=== PATIENT | male | born 1960 | race Caucasian/White ===

== ENCOUNTER 2022-05-28 14:35 | Emergency (ER) | payer MEDICAID ==
[~2022-05-28] VITALS: Ht 167.6 cm; Wt 95.3 kg
[2022-05-28 14:44] VITALS: BP 149/86
[2022-05-28] MEDS ORDERED: ACETAMINOPHEN EXTRA STRENGTH 500 MG TAB PO ONE (14:55)
--- NOTE | 2022-05-28 15:17 | NUR ---
SWABS HANDED TO KULWINDER SURGICAL ASSISTANT CERTIFIED
--- NOTE | 2022-05-28 16:20 | NUR ---
PT STATED THAT HE FELT "DIZZY" ACCUCHECK DONE AND GIVEN SANDWICH AND JUICE
--- NOTE | 2022-05-28 16:20 | NUR ---
61 Y/O MALE NANNETTE FROM [facility] C/O GEN BODY ACHES, FEVERS, HEADACHE, COUGH. PER EMS PT WAS TESTED FOR COVID AT FACILITY AND TESTED NEGATIVE. NKA PMH: HTN, DM,GOUT, DEPRESSION Addendum: 05/28/22 at 1623 by MNURBMD ALLERGY: FLUOXETINE
[2022-05-28] MEDS ORDERED: BENZ-300 PO (16:40)
[2022-05-28] MEDS ORDERED: IBUP-2213 PO (16:40)
[2022-05-28] MEDS ORDERED: TAM75 PO (16:40)
--- NOTE | 2022-05-28 16:49 | NUR ---
Patient discharged with v/s stable. Written and verbal after care instructions ABOUT INFLUENZA given and explained. Patient alert, oriented and verbalized understanding of instructions. Ambulatory with to [facility]. All questions addressed prior to discharge. ID band removed. Patient advised to follow up with PMD. Rx of CEPACOL, MOTRIN AND TAMIFLU given. Patient educated on indication of medication including possible reaction and side effects. Opportunity to ask questions provided and answered.
== END 2022-05-28 16:49 | disposition home or self-care (01) ==
LOC: MED 14:35
DX: J10.1 Influenza due to other identified influenza virus with other respiratory manifestations (principal); Z20.822 Contact with and (suspected) exposure to COVID-19; R11.0 Nausea; E11.9 Type 2 diabetes mellitus without complications; I10 Essential (primary) hypertension; Z88.1 Allergy status to other antibiotic agents; Z79.899 Other long term (current) drug therapy
CPT/HCPCS: 71045; 87426; 87804; 99284; Q0092

== ENCOUNTER 2022-07-03 17:40 | Emergency (ER) | payer MEDICAID ==
[~2022-07-03] VITALS: Ht 167.6 cm; Wt 81.6 kg
[~2022-07-03 17:40] MED LIST: BENZ-300 PO; IBUP-2213 PO; TAM75 PO
[2022-07-03 17:57] VITALS: BP 158/96
--- NOTE | 2022-07-03 18:00 | NUR ---
PT RECEIVED, CARE ASSUMED. PT PRESENTS SELF TO ER FOR EVALUATION OF BLOOD IN URINE. COLLECTED URINE. AWAITING TO BE SEEN BY
[2022-07-03 18:39] LABS: BASOPHILS # (AUTO) 0.1 K/uL (0.00-0.22); BASOPHILS % (AUTO) 0.8 % (0.0-2.0); EOSINOPHILS # (AUTO) 0.5 K/uL (0-0.4); EOSINOPHILS % (AUTO) 5.6 % (0.0-4.0); HEMATOCRIT 42.6 % (36-52); HEMOGLOBIN 14.5 g/dL (12.0-18.0); LYMPHOCYTES # (AUTO) 3.1 K/uL (2.0-11.5); LYMPHOCYTES % (AUTO) 34.2 % (20.5-51.1); MEAN CORPUSCULAR HEMOGLOBIN 29 pg (27-31); MEAN CORPUSCULAR HGB CONC 34 g/dL (33-37); MEAN CORPUSCULAR VOLUME 84.4 fL (80-94); MONOCYTES # (AUTO) 0.8 K/uL (0.8-1.0); MONOCYTES % (AUTO) 8.3 % (1.7-9.3); NEUTROPHILS # (AUTO) 4.6 K/uL (1.8-7.7); NEUTROPHILS % (AUTO) 51.1 % (42.2-75.2); PLATELET COUNT (AUTO) 237 K/uL (140-450); RED BLOOD CELL COUNT(AUTO) 5.05 MIL/uL (4.20-6.10); RED CELL DISTRIBUTION WIDTH 13.8 % (11.6-13.7); WHITE BLOOD COUNT (AUTO) 9.1 K/uL (4.8-10.8)
[2022-07-03 19:01] LABS: ALBUMIN 3.8 g/dL (3.4-5.0); ANION GAP 8.9 (8-16); CREATININE 1.1 mg/dL (0.6-1.3); POTASSIUM 3.9 mmol/L (3.5-5.1); TOTAL BILIRUBIN 0.2 mg/dL (0.0-1.0)
[2022-07-03 19:07] LABS: APPEARANCE,URINE SL CLOUDY (CLEAR); BILIRUBIN,URINE NEGATIVE (NEGATIVE); BLOOD, URINE 3+ (NEGATIVE); COLOR,URINE AMBER (YELLOW); LEUKOCYTE ESTERASE ,URINE NEGATIVE (NEGATIVE); NITRITE, URINE NEGATIVE (NEGATIVE); UGLUCOSE 3+ (NEGATIVE)
[2022-07-03 19:32] LABS: RBC,URINE 20-50 /HPF (0-5); WBC,URINE 0-5 /HPF (0-5)
[2022-07-03 19:33] LABS: OTHER CASTS, URINE None Seen /LPF (None Seen)
[2022-07-03] MEDS ORDERED: TAMS0.4C96 PO (19:48)
[2022-07-03] MEDS ORDERED: SULF-59 PO (19:48)
--- NOTE | 2022-07-03 20:26 | NUR ---
Patient discharged with v/s stable. Written and verbal after care instructions given and explained. Patient verbalized understanding. Ambulatory with steady gait. All questions addressed prior to discharge. Advised to follow up with PMD.
== END 2022-07-03 18:00 | disposition home or self-care (01) ==
LOC: MED 17:40
DX: N30.91 Cystitis, unspecified with hematuria (principal); E11.9 Type 2 diabetes mellitus without complications; I10 Essential (primary) hypertension; Z79.4 Long term (current) use of insulin; Z79.899 Other long term (current) drug therapy
CPT/HCPCS: 36415; 80053; 81001; 85025; 87086; 99283

== ENCOUNTER 2022-08-12 01:06 | Inpatient (IN) | payer MEDICAID ==
[~2022-08-12] VITALS: Ht 167.6 cm; Wt 106.6 kg
[~2022-08-12 01:06] MED LIST changes: +SULF-59 PO; +TAMS0.4C96 PO
[2022-08-12 01:08] VITALS: BP 162/94
--- NOTE | 2022-08-12 01:13 | NUR ---
pt to bed
--- NOTE | 2022-08-12 01:27 | NUR ---
abd pain 10/10 started a couple of hours ago. pt has nausea. pt denies eating anything, he also said having some nausea headache and arm ad neck pain. pt has history of gout
[2022-08-12 01:56] LABS: BASOPHILS % (AUTO) 0.4 % (0.0-2.0); EOSINOPHILS # (AUTO) 0.4 K/uL (0-0.4); EOSINOPHILS % (AUTO) 3.7 % (0.0-4.0); HEMATOCRIT 43.4 % (36-52); HEMOGLOBIN 15.3 g/dL (12.0-18.0); LYMPHOCYTES # (AUTO) 1.4 K/uL (2.0-11.5); LYMPHOCYTES % (AUTO) 11.8 % (20.5-51.1); MEAN CORPUSCULAR HEMOGLOBIN 29 pg (27-31); MEAN CORPUSCULAR HGB CONC 35 g/dL (33-37); MEAN CORPUSCULAR VOLUME 82.5 fL (80-94); MONOCYTES # (AUTO) 0.6 K/uL (0.8-1.0); MONOCYTES % (AUTO) 5.2 % (1.7-9.3); NEUTROPHILS # (AUTO) 9.5 K/uL (1.8-7.7); NEUTROPHILS % (AUTO) 78.9 % (42.2-75.2); PLATELET COUNT (AUTO) 322 K/uL (140-450); RED BLOOD CELL COUNT(AUTO) 5.26 MIL/uL (4.20-6.10); RED CELL DISTRIBUTION WIDTH 14.7 % (11.6-13.7)
[2022-08-12] MEDS ORDERED: NACL 0.9% 2,000 ML IV ONE (02:30)
[2022-08-12 03:23] LABS: ALBUMIN 3.8 g/dL (3.4-5.0); ANION GAP 13.1 (8-16); CARBON DIOXIDE 27.6 mmol/L (21-32); CREATININE 1.1 mg/dL (0.6-1.3); POTASSIUM 3.7 mmol/L (3.5-5.1); TOTAL BILIRUBIN 0.4 mg/dL (0.0-1.0)
[2022-08-12] MEDS ORDERED: MORPHINE SULFATE 4 MG/ML SYR IVP ONE (04:00)
[2022-08-12] MEDS ORDERED: ONDANSETRON 4 MG/2 ML VIAL IVP PRN (06:25)
[2022-08-12] MEDS ORDERED: POTASSIUM CHLORIDE 10 MEQ TABER PO PRN (06:25)
[2022-08-12] MEDS ORDERED: MORPHINE SULFATE 2 MG/ML SYR IVP PRN (06:25)
[2022-08-12] MEDS ORDERED: NACL 0.9% 1,000 ML IV ONE (06:25)
[2022-08-12] MEDS ORDERED: MAG SULF 2000 MG/WATER PREMIX 50 ML IV PRN (06:25)
[2022-08-12] MEDS ORDERED: LORazepam 2 MG/ML VIAL IVP PRN (06:25)
[2022-08-12] MEDS ORDERED: DOCUSATE SODIUM 100 MG GELCAP PO PRN (06:25)
[2022-08-12] MEDS ORDERED: ACETAMINOPHEN 325 MG TAB PO PRN (06:25)
[2022-08-12] MEDS ORDERED: ZOLPIDEM 10 MG TAB PO PRN (06:25)
[2022-08-12] MEDS ORDERED: DEXTROSE 50% 50 ML SYR IVP PRN (06:30)
[2022-08-12] MEDS ORDERED: AMLO5TAB PO (06:49)
[2022-08-12] MEDS ORDERED: INSU100S22 SUBQ (06:49)
[2022-08-12] MEDS ORDERED: DULO20EC PO (06:49)
[2022-08-12] MEDS ORDERED: [UNRECOGNIZED DRUG - CODE] PO (06:49)
[2022-08-12] MEDS ORDERED: INSU100S5 IJ (06:49)
[2022-08-12] MEDS ORDERED: MELA5SGL PO (06:49)
[2022-08-12] MEDS ORDERED: ALLO100T21 PO (06:49)
[2022-08-12] MEDS ORDERED: PANT40EC PO (06:49)
[2022-08-12] MEDS ORDERED: PRAZ1CAP5 PO (06:49)
[2022-08-12] MEDS ORDERED: TRAZ150T36 PO (06:49)
--- NOTE | 2022-08-12 07:45 | NUR ---
ASSUMED PATIENT CARE, CONCU WITH PRIOR NURSING ASSESSMENTS.
[2022-08-12] MEDS: LEVOFLOXACIN 500 MG/D5W PREMIX 100 ML IV SCH (09:05)
[2022-08-12] MEDS: metroNIDAZOLE 500 MG/NS PREMIX 100 ML IV SCH ×2 (09:47→22:15)
[2022-08-12] MEDS: BLOOD GLUCOSE MONITORING 1 DEV DEV FS SCH ×4 (11:27→22:00)
--- NOTE | 2022-08-12 14:08 | NUR ---
PATIENT HAS BEEN SCREENED AND CATEGORIZED MODERATE NUTRITION RISK. PATIENT WILL BE SEEN WITHIN 3-5 DAYS OF ADMISSION. REVIEWED BY BRUNO CASIANO RD
--- NOTE | 2022-08-12 19:20 | NUR ---
Received report from CAROLYN Bob and continue care of patient.
--- NOTE | 2022-08-12 19:58 | NUR ---
Patient will be admitted to care of Dr. Bonner. Admited to [facility]. Will go to room 113. Belongings list completed. Report to CAROLYN Armijo.
[2022-08-12 20:25] VITALS: BP 119/65
--- NOTE | 2022-08-12 20:25 | NUR ---
RECEIVED PATIENT FROM ED, CAME VIA WHEELCHAIR, PATIENT IS AWAKE, ALERT AND ORIENTED TO PERSON AND TIME, NO SIGNS OF DISTRESS NOTED. PATIENT ABLE TO TRANSFER FROM WHEELCHAIR TO BED, WITH STANDBY ASSIST, USES CANE AMBULATORY DEVICE. MRSA SWAB DONE. INITIAL ASSESSMENT DONE. CALL LIGHT WITHIN REACH.
--- NOTE | 2022-08-12 22:15 | NUR ---
SCHEDULED MEDICATIONS GIVEN ORDERED.
--- NOTE | 2022-08-13 00:30 | NUR ---
PATIENT IS ASLEEP, NO SIGNS OF DISTRESS NOTED, NO SIGNS OF PAIN/DISCOMFORT NOTED. CALL LIGHT WITHIN REACH.
[2022-08-13 04:00] VITALS: BP 114/72
[2022-08-13] MEDS: metroNIDAZOLE 500 MG/NS PREMIX 100 ML IV SCH ×3 (04:42→20:41)
--- NOTE | 2022-08-13 04:42 | NUR ---
SCHEDULED MEDICATION GIVEN ORDERED. PATIENT DENIES PAIN, DENIES SOB. CALL LIGHT WITHIN REACH.
[2022-08-13] MEDS: BLOOD GLUCOSE MONITORING 1 DEV DEV FS SCH ×4 (06:39→20:37)
--- NOTE | 2022-08-13 07:19 | NUR ---
ENDORSED PATIENT TO DAY NURSE FOR CONTINUITY OF CARE. NEEDS MET THROUGHOUT THE SHIFT. PATIENT IN STABLE CONDITION.
--- NOTE | 2022-08-13 07:25 | NUR ---
RECEIVED PATIENT FROM RADIO EQUIPMENT REPAIRER NURSE.PATIENT SLEEPING IN BED.CHEST RISING AND FALLING EVENLY.ALL SAFETY MEASURES IN PLACE.ON 2L NC.CALL LIGHT WITHIN REACH.WILL CONTINUE TO MONITOR.POC DISCUSSED WITH RADIO EQUIPMENT REPAIRER NURSE.
[2022-08-13 07:31] LABS: BASOPHILS % (AUTO) 0.4 % (0.0-2.0); EOSINOPHILS # (AUTO) 0.3 K/uL (0-0.4); EOSINOPHILS % (AUTO) 5.3 % (0.0-4.0); HEMATOCRIT 41.4 % (36-52); HEMOGLOBIN 13.8 g/dL (12.0-18.0); LYMPHOCYTES # (AUTO) 1.8 K/uL (2.0-11.5); LYMPHOCYTES % (AUTO) 30.4 % (20.5-51.1); MEAN CORPUSCULAR HEMOGLOBIN 29 pg (27-31); MEAN CORPUSCULAR HGB CONC 33 g/dL (33-37); MEAN CORPUSCULAR VOLUME 85.9 fL (80-94); MONOCYTES # (AUTO) 0.6 K/uL (0.8-1.0); MONOCYTES % (AUTO) 9.9 % (1.7-9.3); NEUTROPHILS # (AUTO) 3.2 K/uL (1.8-7.7); PLATELET COUNT (AUTO) 179 K/uL (140-450); RED BLOOD CELL COUNT(AUTO) 4.82 MIL/uL (4.20-6.10); RED CELL DISTRIBUTION WIDTH 13.6 % (11.6-13.7); WHITE BLOOD COUNT (AUTO) 5.9 K/uL (4.8-10.8)
[2022-08-13 07:35] LABS: ANION GAP 10.9 (8-16); CARBON DIOXIDE 28.7 mmol/L (21-32); CREATININE 0.8 mg/dL (0.6-1.3); POTASSIUM 3.6 mmol/L (3.5-5.1)
[2022-08-13 08:00] VITALS: BP 137/79
[2022-08-13] MEDS: LEVOFLOXACIN 500 MG/D5W PREMIX 100 ML IV SCH (09:28)
[2022-08-13] MEDS: NACL 0.9% 1,000 ML IV SCH ×2 (09:33→22:28)
--- NOTE | 2022-08-13 10:00 | NUR ---
FREQUENT ROUNDS DONE.PATIENT SLEEPING IN BED. MORNING CARE GIVEN, ALL DUE MEDICATIONS GIVEN .ON NS 75 ML/HR. ALL SAFETY MEASURES IN PLACE.ALL NEEDS MET UNTIL NOW.
--- NOTE | 2022-08-13 15:30 | NUR ---
PERIPHERAL IV COMES OUT. NEW IV LINE 22G G IN SITU. COLLECTED STOOL SAMPLE FOR STOOL CULTURE AND WBC. NO OBVIOUS SIGNS OF DIARRHEA NOTED.
[2022-08-13] MEDS: INSULIN LISPRO SLIDING SCALE 100 UNITS/ML VIAL SUBQ PRN ×2 (16:59→20:39)
--- NOTE | 2022-08-13 19:30 | NUR ---
ENDORSED PATIENT TO STONE POLISHER HAND NURSE FOR CONTINUITY OF CARE.
--- NOTE | 2022-08-13 19:35 | NUR ---
RECEIVED PATIENT ON THE BED, IS AWAKE, ALERT AND ORIENTED X3, PATIENT WAS EATING, NO SIGNS OF DISTRESS NOTED, DENIES PAIN UPON ASSESSMENT. NS @75ML/HR RUNNING VIA RIGHT HAND IV SITE, G22. CALL LIGHT WITHIN REACH.
[2022-08-13 20:00] VITALS: BP 144/85
--- NOTE | 2022-08-13 20:42 | NUR ---
SCHEDULED MEDICATIONS GIVEN ORDERED. CALL LIGHT WITHIN REACH.
[2022-08-14] MEDS: NACL 0.9% 1,000 ML IV SCH (02:42)
[2022-08-14 04:00] VITALS: BP 136/69
[2022-08-14] MEDS: metroNIDAZOLE 500 MG/NS PREMIX 100 ML IV SCH (05:07)
--- NOTE | 2022-08-14 05:07 | NUR ---
SCHEDULED FLAGYL GIVEN ORDERED. PATIENT ASLEEP, NO SIGNS OF DISTRESS NOTED, NO SIGNS OF PAIN/DISCOMFORT NOTED. CALL LIGHT WITHIN REACH. BED IN LOW AND LOCKED POSITION.
--- NOTE | 2022-08-14 06:30 | NUR ---
BLOOD SUGAR 134 MG/DL, NO INSULIN COVERAGE NEEDED.
[2022-08-14] MEDS: BLOOD GLUCOSE MONITORING 1 DEV DEV FS SCH ×3 (06:36→12:07)
--- NOTE | 2022-08-14 07:07 | NUR ---
ENDORSED PATIENT TO DAY NURSE FOR CONTINUITY OF CARE. PATIENT IN STABLE CONDITION.
[2022-08-14 07:22] LABS: ANION GAP 14.2 (8-16); CARBON DIOXIDE 24.4 mmol/L (21-32); CREATININE 0.9 mg/dL (0.6-1.3); POTASSIUM 3.6 mmol/L (3.5-5.1)
[2022-08-14 07:30] LABS: BASOPHILS % (AUTO) 0.6 % (0.0-2.0); EOSINOPHILS # (AUTO) 0.5 K/uL (0-0.4); EOSINOPHILS % (AUTO) 6.8 % (0.0-4.0); HEMATOCRIT 38.2 % (36-52); HEMOGLOBIN 13.2 g/dL (12.0-18.0); LYMPHOCYTES # (AUTO) 2.3 K/uL (2.0-11.5); LYMPHOCYTES % (AUTO) 33.4 % (20.5-51.1); MEAN CORPUSCULAR HEMOGLOBIN 28 pg (27-31); MEAN CORPUSCULAR HGB CONC 35 g/dL (33-37); MEAN CORPUSCULAR VOLUME 82.1 fL (80-94); MONOCYTES # (AUTO) 0.7 K/uL (0.8-1.0); MONOCYTES % (AUTO) 10.2 % (1.7-9.3); NEUTROPHILS # (AUTO) 3.3 K/uL (1.8-7.7); PLATELET COUNT (AUTO) 197 K/uL (140-450); RED BLOOD CELL COUNT(AUTO) 4.66 MIL/uL (4.20-6.10); RED CELL DISTRIBUTION WIDTH 13.2 % (11.6-13.7); WHITE BLOOD COUNT (AUTO) 6.8 K/uL (4.8-10.8)
--- NOTE | 2022-08-14 07:33 | NUR ---
RECEIVED PATIENT FROM HYDRATION PLANT OPERATOR NURSE. PATIENT SLEEPING IN BED. CHEST RISING AND FALLING EVENLY. NO SIGNS OF DISTRESS NOTED. CALL LIGHT WITHIN REACH.ALL SAFETY MEASURES IN PLACE.WILL CONTINUE TO MONITOR.
[2022-08-14] MEDS ORDERED: LEVO-481 PO (09:28)
[2022-08-14] MEDS: LEVOFLOXACIN 500 MG/D5W PREMIX 100 ML IV SCH (09:50)
--- NOTE | 2022-08-14 10:00 | NUR ---
FREQUENT ROUNDS DONE, MD AT BEDSIDE. DISCHARGE ORDER CONFIRMED
[2022-08-14 10:25] VITALS: BP 126/84
[2022-08-14 10:41] VITALS: BP 126/84
[2022-08-14 10:51] VITALS: BP 126/84
[2022-08-14] MEDS: INSULIN LISPRO SLIDING SCALE 100 UNITS/ML VIAL SUBQ PRN (12:09)
--- NOTE | 2022-08-14 12:30 | NUR ---
DISCHARGE PAPER WORK DONE. GAVE REPORT TO [facility] REGARDING THE PATIENT.PERIPHERAL IV REMOVED. DISCHARGE PACKETS GIVEN. ID BANDS REMOVED. DISCHARGED TO [facility].
== END 2022-08-14 12:25 | DRG 720 ==
LOC: MED 01:06 → MMU 06:23 → MTU 19:05
PROVIDERS: ADMIT Family Medicine; ATTEND Family Medicine
DX: A41.9 Sepsis, unspecified organism (principal); J96.00 Acute respiratory failure, unspecified whether with hypoxia or hypercapnia; E87.20 Acidosis, unspecified; D72.10 Eosinophilia, unspecified; E83.51 Hypocalcemia; F03.90 Unspecified dementia, unspecified severity, without behavioral disturbance, psychotic disturbance, mood disturbance, and anxiety; D72.810 Lymphocytopenia; E11.65 Type 2 diabetes mellitus with hyperglycemia; A04.9 Bacterial intestinal infection, unspecified; D72.818 Other decreased white blood cell count; K40.90 Unilateral inguinal hernia, without obstruction or gangrene, not specified as recurrent; M10.9 Gout, unspecified; Z20.822 Contact with and (suspected) exposure to COVID-19; K57.30 Diverticulosis of large intestine without perforation or abscess without bleeding; I10 Essential (primary) hypertension; Z88.8 Allergy status to other drugs, medicaments and biological substances; Z79.4 Long term (current) use of insulin; Z79.899 Other long term (current) drug therapy
CPT/HCPCS: 36415; 80048; 80053; 82948; 83605; 83690; 83735; 85025; 87040; 87081; 96360; 96361; 99285; J1956; J2270; J2405; J3490

== ENCOUNTER 2022-09-30 19:38 | Emergency (ER) | payer MEDICAID ==
[~2022-09-30] VITALS: Ht 167.6 cm; Wt 102.1 kg
[~2022-09-30 19:38] MED LIST changes: +ALLO100T21 PO; +AMLO5TAB PO; +DULO20EC PO; -IBUP-2213 PO; +INSU100S22 SUBQ; +INSU100S5 IJ; +LEVO-481 PO; +MELA5SGL PO; +PANT40EC PO; +PRAZ1CAP5 PO; -SULF-59 PO; -TAM75 PO; +TRAZ150T36 PO; +[UNRECOGNIZED DRUG - CODE] PO
[2022-09-30 20:00] VITALS: BP 164/104
--- NOTE | 2022-09-30 20:06 | NUR ---
TO BED 12 FOLLOWING TRIAGE
--- NOTE | 2022-09-30 20:10 | NUR ---
Patient resting in bed, A/Ox4, chest rise and fall symmetrical, no c/o pain or s/s of distress, on monitor.
[2022-09-30] MEDS ORDERED: ACET-9882 PO (20:41)
[2022-09-30] MEDS ORDERED: DULO20EC PO (20:41)
[2022-09-30] MEDS ORDERED: KETO30SO21 IJ (20:41)
[2022-09-30] MEDS ORDERED: CHOL500040 PO (20:41)
[2022-09-30 21:15] LABS: BASOPHILS # (AUTO) 0.1 K/uL (0.00-0.22); BASOPHILS % (AUTO) 0.7 % (0.0-2.0); EOSINOPHILS # (AUTO) 0.3 K/uL (0-0.4); EOSINOPHILS % (AUTO) 2.6 % (0.0-4.0); HEMATOCRIT 46.9 % (36-52); LYMPHOCYTES # (AUTO) 2.5 K/uL (2.0-11.5); LYMPHOCYTES % (AUTO) 20.4 % (20.5-51.1); MEAN CORPUSCULAR HEMOGLOBIN 28 pg (27-31); MEAN CORPUSCULAR HGB CONC 34 g/dL (33-37); MEAN CORPUSCULAR VOLUME 83.1 fL (80-94); MONOCYTES # (AUTO) 0.8 K/uL (0.8-1.0); NEUTROPHILS # (AUTO) 8.4 K/uL (1.8-7.7); NEUTROPHILS % (AUTO) 69.3 % (42.2-75.2); PLATELET COUNT (AUTO) 245 K/uL (140-450); RED BLOOD CELL COUNT(AUTO) 5.64 MIL/uL (4.20-6.10); RED CELL DISTRIBUTION WIDTH 13.8 % (11.6-13.7); WHITE BLOOD COUNT (AUTO) 12.1 K/uL (4.8-10.8)
[2022-09-30 21:25] LABS: ANION GAP 12.3 (8-16); CARBON DIOXIDE 27.7 mmol/L (21-32); CREATININE 1.1 mg/dL (0.6-1.3)
[2022-09-30] MEDS ORDERED: NACL 0.9% 1,000 ML IV ONE (21:50)
--- NOTE | 2022-09-30 22:31 | NUR ---
Dr. Serrano verbally informed that patient stated he "has congested heart failure." Dr. Serrano verbalized understanding and stated "a liter of IV fluid is ok."
--- NOTE | 2022-09-30 22:42 | NUR ---
Patient resting in bed, A/Ox4, chest rise and fall symmetrical, no c/o pain or s/s of distress, on monitor.
[2022-09-30 23:26] LABS: APPEARANCE,URINE CLEAR (CLEAR); BILIRUBIN,URINE 1+ (NEGATIVE); BLOOD, URINE 3+ (NEGATIVE); COLOR,URINE YELLOW (YELLOW); LEUKOCYTE ESTERASE ,URINE NEGATIVE (NEGATIVE); NITRITE, URINE NEGATIVE (NEGATIVE); UGLUCOSE 3+ (NEGATIVE)
[2022-09-30 23:29] LABS: RBC,URINE TOO NUMEROUS TO COUN /HPF (0-5); WBC,URINE 0-5 /HPF (0-5)
--- NOTE | 2022-10-01 00:22 | NUR ---
Patient resting in bed, A/Ox4, chest rise and fall symmetrical, no c/o pain or s/s of distress, on monitor.
--- NOTE | 2022-10-01 02:00 | NUR ---
Patient resting in bed, A/Ox4, chest rise and fall symmetrical, no c/o pain or s/s of distress, on monitor.
[2022-10-01 02:05] VITALS: BP 135/74
--- NOTE | 2022-10-01 02:08 | NUR ---
Yari cary in EDM - 10/01/22 at 0209 by [id number] Patient discharged with v/s stable. Written and verbal after care instructions given and explained. Patient verbalized understanding. All questions addressed prior to discharge. Advised to follow up with PMD.
--- NOTE | 2022-10-01 02:09 | NUR ---
Patient discharged with v/s stable. Written and verbal after care instructions given and explained. Patient verbalized understanding. Ambulatory with to home. All questions addressed prior to discharge. Advised to follow up with PMD.
== END 2022-10-01 02:09 | disposition home or self-care (01) ==
LOC: MED 19:38
DX: R31.9 Hematuria, unspecified (principal); E11.9 Type 2 diabetes mellitus without complications; I10 Essential (primary) hypertension; F03.90 Unspecified dementia, unspecified severity, without behavioral disturbance, psychotic disturbance, mood disturbance, and anxiety; Z79.899 Other long term (current) drug therapy; Z79.4 Long term (current) use of insulin; Z88.8 Allergy status to other drugs, medicaments and biological substances
CPT/HCPCS: 36415; 80048; 81001; 85025; 96360; 99285; J7030

== ENCOUNTER 2023-03-26 11:15 | Emergency (ER) | payer OTHER, MEDICAID ==
[~2023-03-26] VITALS: Ht 167.6 cm; Wt 90.7 kg
[~2023-03-26 11:15] MED LIST changes: +ACET-9882 PO; -BENZ-300 PO; +CHOL500040 PO; +KETO30SO21 IJ; -LEVO-481 PO; -[UNRECOGNIZED DRUG - CODE] PO
[2023-03-26] MEDS ORDERED: KETOROLAC 30 MG/ML VIAL IM ONE ×3 (11:25→11:30)
[2023-03-26] MEDS ORDERED: KETOROLAC 15 MG/ML VIAL ONE ×2 (11:31→11:32)
[2023-03-26 11:35] VITALS: BP 160/85; PULSE 80; RESP 18; TEMP 98; O2SAT 98
[2023-03-26] MEDS ORDERED: KETOROLAC 60 MG/2 ML VIAL IM ONE ×2 (11:38→11:40)
[2023-03-26 11:43] LABS: BASOPHILS # (AUTO) 0.1 K/uL (0.00-0.22); BASOPHILS % (AUTO) 0.6 % (0.0-2.0); EOSINOPHILS # (AUTO) 0.5 K/uL (0-0.4); EOSINOPHILS % (AUTO) 4.6 % (0.0-4.0); HEMATOCRIT 38.4 % (36-52); HEMOGLOBIN 12.8 g/dL (12.0-18.0); LYMPHOCYTES # (AUTO) 2.6 K/uL (2.0-11.5); LYMPHOCYTES % (AUTO) 25.6 % (20.5-51.1); MEAN CORPUSCULAR HEMOGLOBIN 28 pg (27-31); MEAN CORPUSCULAR HGB CONC 34 g/dL (33-37); MEAN CORPUSCULAR VOLUME 83.3 fL (80-94); MONOCYTES # (AUTO) 0.9 K/uL (0.8-1.0); MONOCYTES % (AUTO) 8.4 % (1.7-9.3); NEUTROPHILS # (AUTO) 6.2 K/uL (1.8-7.7); NEUTROPHILS % (AUTO) 60.8 % (42.2-75.2); PLATELET COUNT (AUTO) 207 K/uL (140-450); RED BLOOD CELL COUNT(AUTO) 4.61 MIL/uL (4.20-6.10); RED CELL DISTRIBUTION WIDTH 13.5 % (11.6-13.7); WHITE BLOOD COUNT (AUTO) 10.2 K/uL (4.8-10.8)
[2023-03-26 11:59] LABS: ALBUMIN 3.1 g/dL (3.4-5.0); ANION GAP 9.4 (8-16); CALCIUM 8.7 mg/dL (8.5-10.1); CARBON DIOXIDE 28.7 mmol/L (21-32); POTASSIUM 4.1 mmol/L (3.5-5.1); TOTAL BILIRUBIN 0.2 mg/dL (0.0-1.0); TOTAL PROTEIN, SERUM 7.1 g/dL (6.4-8.2)
[2023-03-26 16:38] VITALS: BP 118/79; PULSE 83; RESP 15; TEMP 97.1; O2SAT 100
== END 2023-03-26 16:39 | disposition home or self-care (01) ==
LOC: MED 11:15
DX: R07.89 Other chest pain (principal); K40.90 Unilateral inguinal hernia, without obstruction or gangrene, not specified as recurrent; E11.9 Type 2 diabetes mellitus without complications; I10 Essential (primary) hypertension; F03.90 Unspecified dementia, unspecified severity, without behavioral disturbance, psychotic disturbance, mood disturbance, and anxiety; Z79.899 Other long term (current) drug therapy; Z79.4 Long term (current) use of insulin; Z88.8 Allergy status to other drugs, medicaments and biological substances
CPT/HCPCS: 36415; 71045; 74176; 80053; 83880; 84484; 85025; 93005; 96372; 99285; J1885

== ENCOUNTER 2023-04-07 19:08 | Emergency (ER) | payer OTHER, MEDICAID ==
[~2023-04-07] VITALS: Ht 167.6 cm; Wt 113.4 kg
[2023-04-07 19:17] VITALS: BP 172/98; PULSE 98; RESP 18; TEMP 97.9; O2SAT 98
[2023-04-07 20:12] VITALS: BP 148/79; PULSE 98; RESP 18; TEMP 97.9; O2SAT 98
[2023-04-07 20:31] LABS: BILIRUBIN,URINE 1+ (NEGATIVE); BLOOD, URINE 3+ (NEGATIVE); LEUKOCYTE ESTERASE ,URINE TRACE (NEGATIVE); NITRITE, URINE POSITIVE (NEGATIVE); PH,URINE 5.5 (5.0-9.0); PROTEIN,URINE 2+ (NEGATIVE); UGLUCOSE 3+ (NEGATIVE)
[2023-04-07 20:46] LABS: BACTERIA,URINE 10-30 (MOD) /HPF (None Seen); ICTOTEST NEGATIVE (NEGATIVE); RBC,URINE 11-20 (MOD) /HPF (0-5); SQUAMOUS EPITHELIAL CELL,UR 0-3 (FEW) /LPF (0-3 (FEW))
[2023-04-07 20:47] LABS: APPEARANCE,URINE BLOODY (CLEAR); COLOR,URINE RED (YELLOW)
== END 2023-04-07 20:28 | disposition left against medical advice (07) ==
LOC: MED 19:08
DX: R31.9 Hematuria, unspecified (principal); K40.90 Unilateral inguinal hernia, without obstruction or gangrene, not specified as recurrent; I11.0 Hypertensive heart disease with heart failure; I50.9 Heart failure, unspecified; E11.9 Type 2 diabetes mellitus without complications; F03.90 Unspecified dementia, unspecified severity, without behavioral disturbance, psychotic disturbance, mood disturbance, and anxiety; Z79.899 Other long term (current) drug therapy; Z79.2 Long term (current) use of antibiotics; Z79.4 Long term (current) use of insulin; Z88.8 Allergy status to other drugs, medicaments and biological substances
CPT/HCPCS: 81001; 87086; 99281; 99283

== ENCOUNTER 2023-04-11 20:15 | Inpatient (IN) | payer MEDICAID, OTHER ==
[~2023-04-11] VITALS: Ht 167.6 cm; Wt 81.6 kg
[2023-04-11 20:15] VITALS: BP 147/85; PULSE 114; RESP 18; TEMP 98.2; O2SAT 98
[2023-04-11] MEDS ORDERED: fentaNYL citrate 0.05 MG/ML VIAL IVP ONE (20:50)
[2023-04-11 21:10] LABS: BASOPHILS # (AUTO) 0.1 K/uL (0.00-0.22); BASOPHILS % (AUTO) 0.6 % (0.0-2.0); EOSINOPHILS # (AUTO) 0.4 K/uL (0-0.4); EOSINOPHILS % (AUTO) 2.8 % (0.0-4.0); HEMATOCRIT 39.5 % (36-52); HEMOGLOBIN 13.2 g/dL (12.0-18.0); LYMPHOCYTES # (AUTO) 2.8 K/uL (2.0-11.5); LYMPHOCYTES % (AUTO) 22.2 % (20.5-51.1); MEAN CORPUSCULAR HEMOGLOBIN 28 pg (27-31); MEAN CORPUSCULAR HGB CONC 33 g/dL (33-37); MEAN CORPUSCULAR VOLUME 83.1 fL (80-94); MONOCYTES # (AUTO) 0.9 K/uL (0.8-1.0); MONOCYTES % (AUTO) 6.7 % (1.7-9.3); NEUTROPHILS # (AUTO) 8.6 K/uL (1.8-7.7); NEUTROPHILS % (AUTO) 67.7 % (42.2-75.2); PLATELET COUNT (AUTO) 252 K/uL (140-450); RED BLOOD CELL COUNT(AUTO) 4.75 MIL/uL (4.20-6.10); WHITE BLOOD COUNT (AUTO) 12.7 K/uL (4.8-10.8)
[2023-04-11 21:25] LABS: ALBUMIN 3.1 g/dL (3.4-5.0); ANION GAP 13.5 (8-16); CALCIUM 8.2 mg/dL (8.5-10.1); CARBON DIOXIDE 26.4 mmol/L (21-32); CREATININE 1.1 mg/dL (0.6-1.3); POTASSIUM 3.9 mmol/L (3.5-5.1); TOTAL BILIRUBIN 0.2 mg/dL (0.0-1.0); TOTAL PROTEIN, SERUM 7.4 g/dL (6.4-8.2)
[2023-04-11 22:09] LABS: APPEARANCE,URINE CLEAR (CLEAR); BILIRUBIN,URINE NEGATIVE (NEGATIVE); BLOOD, URINE 3+ (NEGATIVE); COLOR,URINE YELLOW (YELLOW); LEUKOCYTE ESTERASE ,URINE NEGATIVE (NEGATIVE); NITRITE, URINE POSITIVE (NEGATIVE); PROTEIN,URINE 1+ (NEGATIVE); UGLUCOSE 3+ (NEGATIVE); UROBILINOGEN,URINE 0.2 EU/dL (0.2 - 1)
[2023-04-11 22:28] LABS: BACTERIA,URINE >30 (MANY) /HPF (None Seen); MUCUS,URINE 1+ /LPF (None Seen); RBC,URINE TOO NUMEROUS TO COUN /HPF (0-5); SQUAMOUS EPITHELIAL CELL,UR 0-3 (FEW) /LPF (0-3 (FEW))
[2023-04-11] MEDS ORDERED: HYDROcodone/APAP 5/325 MG 1 TAB TAB PO ONE (22:35)
[2023-04-11] MEDS ORDERED: NACL 0.9% 2,500 ML IV ONE (22:35)
[2023-04-11] MEDS ORDERED: MORPHINE SULFATE 4 MG/ML SYR IVP ONE (22:55)
[2023-04-11] MEDS ORDERED: cefTRIAXone 1,000 MG VIAL ONE (23:12)
[2023-04-12] MEDS ORDERED: MELATONIN 3 MG TAB PO PRN (01:30)
[2023-04-12] MEDS ORDERED: POTASSIUM CHLORIDE 10 MEQ TABER PO PRN (04:55)
[2023-04-12] MEDS ORDERED: ACETAMINOPHEN 325 MG TAB PO PRN (04:55)
[2023-04-12] MEDS: NACL 0.9% 1,000 ML IV SCH ×2 (04:55→20:43)
[2023-04-12] MEDS ORDERED: ZOLPIDEM 5 MG TAB PO PRN (04:55)
[2023-04-12] MEDS ORDERED: ONDANSETRON 4 MG/2 ML VIAL IM/IVP PRN (04:55)
[2023-04-12] MEDS ORDERED: guaiFENesin DM 200/20 MG-10 ML 10 ML UDC PO PRN (04:55)
[2023-04-12] MEDS ORDERED: DOCUSATE SODIUM 100 MG GELCAP PO PRN (04:55)
[2023-04-12 06:29] LABS: BASOPHILS # (AUTO) 0.1 K/uL (0.00-0.22); BASOPHILS % (AUTO) 0.7 % (0.0-2.0); EOSINOPHILS # (AUTO) 0.5 K/uL (0-0.4); EOSINOPHILS % (AUTO) 4.9 % (0.0-4.0); HEMATOCRIT 38.1 % (36-52); HEMOGLOBIN 12.5 g/dL (12.0-18.0); LYMPHOCYTES # (AUTO) 3.2 K/uL (2.0-11.5); LYMPHOCYTES % (AUTO) 33.6 % (20.5-51.1); MEAN CORPUSCULAR HEMOGLOBIN 28 pg (27-31); MEAN CORPUSCULAR HGB CONC 33 g/dL (33-37); MONOCYTES # (AUTO) 0.8 K/uL (0.8-1.0); MONOCYTES % (AUTO) 8.3 % (1.7-9.3); NEUTROPHILS % (AUTO) 52.5 % (42.2-75.2); PLATELET COUNT (AUTO) 208 K/uL (140-450); RED BLOOD CELL COUNT(AUTO) 4.53 MIL/uL (4.20-6.10); RED CELL DISTRIBUTION WIDTH 13.9 % (11.6-13.7); WHITE BLOOD COUNT (AUTO) 9.5 K/uL (4.8-10.8)
[2023-04-12 06:54] LABS: LACTIC ACID 1.2 mmol/L (0.4-2.0)
[2023-04-12 07:03] LABS: ALBUMIN 2.8 g/dL (3.4-5.0); ANION GAP 9.8 (8-16); CALCIUM 7.6 mg/dL (8.5-10.1); CREATININE 0.8 mg/dL (0.6-1.3); POTASSIUM 3.8 mmol/L (3.5-5.1); TOTAL BILIRUBIN 0.2 mg/dL (0.0-1.0); TOTAL PROTEIN, SERUM 6.7 g/dL (6.4-8.2)
[2023-04-12 07:34] VITALS: O2SAT 98
[2023-04-12 08:34] VITALS: PULSE 75
[2023-04-12] MEDS ORDERED: DEXTROSE 50% 50 ML SYR IVP PRN (08:55)
[2023-04-12] MEDS: PANTOPRAZOLE 40 MG TABEC PO SCH (09:24)
[2023-04-12] MEDS: amLODIPine 5 MG TAB PO SCH (09:24)
[2023-04-12] MEDS: DULoxetine 30 MG CAPDR PO SCH (09:24)
[2023-04-12] MEDS: TAMSULOSIN 0.4 MG CAP PO SCH ×2 (09:25→18:36)
[2023-04-12] MEDS: HYDROcodone/APAP 7.5/325 MG 1 TAB PO PRN ×2 (09:26→20:39)
[2023-04-12 12:00] VITALS: BP 136/78; PULSE 74; PULSE 76; RESP 16; TEMP 97.8; O2SAT 94
[2023-04-12] MEDS: INSULIN LISPRO SLIDING SCALE 100 UNITS/ML VIAL SUBQ PRN ×2 (12:19→20:38)
[2023-04-12] MEDS: BLOOD GLUCOSE MONITORING 1 DEV DEV FS SCH ×3 (12:22→20:36)
[2023-04-12 16:00] VITALS: BP 127/74; PULSE 69; PULSE 77; RESP 16; TEMP 96.7; O2SAT 97
[2023-04-12 20:00] VITALS: BP 133/86; PULSE 87; PULSE 88; RESP 17; RESP 18; TEMP 97.9; O2SAT 94
[2023-04-12] MEDS: INSULIN LANTUS 100 UNITS/ML 10 ML VIAL SUBQ SCH (20:38)
[2023-04-12] MEDS: traZODone 50 MG TAB PO SCH (20:39)
[2023-04-13] VITALS: BP 123/72; PULSE 93; RESP 18; TEMP 97.2; O2SAT 95
[2023-04-13 04:00] VITALS: BP 117/77; PULSE 84; RESP 18; TEMP 97; O2SAT 95
[2023-04-13] MEDS: BLOOD GLUCOSE MONITORING 1 DEV DEV FS SCH ×4 (06:46→20:20)
[2023-04-13] MEDS: INSULIN LISPRO SLIDING SCALE 100 UNITS/ML VIAL SUBQ PRN ×4 (06:49→20:23)
[2023-04-13 07:06] LABS: CALCIUM 7.8 mg/dL (8.5-10.1); CARBON DIOXIDE 27.8 mmol/L (21-32); CREATININE 0.8 mg/dL (0.6-1.3); POTASSIUM 3.8 mmol/L (3.5-5.1)
[2023-04-13 07:15] LABS: BASOPHILS % (AUTO) 0.5 % (0.0-2.0); EOSINOPHILS # (AUTO) 0.5 K/uL (0-0.4); EOSINOPHILS % (AUTO) 5.4 % (0.0-4.0); HEMATOCRIT 35.1 % (36-52); HEMOGLOBIN 11.8 g/dL (12.0-18.0); LYMPHOCYTES # (AUTO) 2.7 K/uL (2.0-11.5); LYMPHOCYTES % (AUTO) 28.8 % (20.5-51.1); MEAN CORPUSCULAR HEMOGLOBIN 28 pg (27-31); MEAN CORPUSCULAR HGB CONC 34 g/dL (33-37); MEAN CORPUSCULAR VOLUME 83.1 fL (80-94); MONOCYTES # (AUTO) 0.6 K/uL (0.8-1.0); MONOCYTES % (AUTO) 6.6 % (1.7-9.3); NEUTROPHILS # (AUTO) 5.5 K/uL (1.8-7.7); NEUTROPHILS % (AUTO) 58.7 % (42.2-75.2); PLATELET COUNT (AUTO) 214 K/uL (140-450); RED BLOOD CELL COUNT(AUTO) 4.23 MIL/uL (4.20-6.10); RED CELL DISTRIBUTION WIDTH 13.9 % (11.6-13.7); WHITE BLOOD COUNT (AUTO) 9.4 K/uL (4.8-10.8)
[2023-04-13 08:00] VITALS: BP 120/73; PULSE 72; PULSE 73; RESP 20; TEMP 97.6; O2SAT 96
[2023-04-13] MEDS: PANTOPRAZOLE 40 MG TABEC PO SCH (08:00)
[2023-04-13] MEDS: DULoxetine 30 MG CAPDR PO SCH (08:00)
[2023-04-13] MEDS: amLODIPine 5 MG TAB PO SCH (08:01)
[2023-04-13] MEDS: TAMSULOSIN 0.4 MG CAP PO SCH ×2 (08:01→18:02)
[2023-04-13] MEDS: HYDROcodone/APAP 7.5/325 MG 1 TAB PO PRN (09:39)
[2023-04-13] MEDS: MORPHINE SULFATE 2 MG/ML SYR IVP PRN (11:52)
[2023-04-13] MEDS: PHENAZOPYRIDINE 100 MG TAB PO SCH ×2 (12:35→18:02)
[2023-04-13] MEDS: NACL 0.9% 1,000 ML IV SCH (15:04)
[2023-04-13 20:00] VITALS: BP 141/86; PULSE 81; RESP 16; TEMP 98; O2SAT 95
[2023-04-13] MEDS: traZODone 50 MG TAB PO SCH (20:18)
[2023-04-13] MEDS: INSULIN LANTUS 100 UNITS/ML 10 ML VIAL SUBQ SCH (20:22)
[2023-04-14] VITALS (8 sets, daily range): BP systolic 109–151; BP diastolic 66–90; PULSE 79–90; RESP 18–20; TEMP 97–98.6; O2SAT 92–98
[2023-04-14] MEDS: BLOOD GLUCOSE MONITORING 1 DEV DEV FS SCH ×4 (06:36→21:03)
[2023-04-14 06:39] LABS: BASOPHILS % (AUTO) 0.3 % (0.0-2.0); EOSINOPHILS # (AUTO) 0.5 K/uL (0-0.4); HEMATOCRIT 35.2 % (36-52); HEMOGLOBIN 11.7 g/dL (12.0-18.0); LYMPHOCYTES # (AUTO) 2.5 K/uL (2.0-11.5); MEAN CORPUSCULAR HEMOGLOBIN 27 pg (27-31); MEAN CORPUSCULAR HGB CONC 33 g/dL (33-37); MEAN CORPUSCULAR VOLUME 82.7 fL (80-94); MONOCYTES # (AUTO) 0.7 K/uL (0.8-1.0); MONOCYTES % (AUTO) 7.6 % (1.7-9.3); NEUTROPHILS # (AUTO) 5.8 K/uL (1.8-7.7); NEUTROPHILS % (AUTO) 61.1 % (42.2-75.2); PLATELET COUNT (AUTO) 235 K/uL (140-450); RED BLOOD CELL COUNT(AUTO) 4.26 MIL/uL (4.20-6.10); RED CELL DISTRIBUTION WIDTH 13.9 % (11.6-13.7); WHITE BLOOD COUNT (AUTO) 9.6 K/uL (4.8-10.8)
[2023-04-14 06:51] LABS: ANION GAP 10.8 (8-16); CARBON DIOXIDE 27.7 mmol/L (21-32); CREATININE 0.8 mg/dL (0.6-1.3); POTASSIUM 3.5 mmol/L (3.5-5.1)
[2023-04-14] MEDS: DULoxetine 30 MG CAPDR PO SCH (08:07)
[2023-04-14] MEDS: TAMSULOSIN 0.4 MG CAP PO SCH ×2 (08:07→16:59)
[2023-04-14] MEDS: PHENAZOPYRIDINE 100 MG TAB PO SCH ×3 (08:08→16:59)
[2023-04-14] MEDS: PANTOPRAZOLE 40 MG TABEC PO SCH (08:08)
[2023-04-14] MEDS: amLODIPine 5 MG TAB PO SCH (08:08)
[2023-04-14] MEDS ORDERED: PYR100 PO (10:02)
[2023-04-14] MEDS ORDERED: DULO30EC PO (10:02)
[2023-04-14] MEDS ORDERED: TAMS0.4C96 PO (10:02)
[2023-04-14] MEDS ORDERED: HUMSLIDE SUBQ (10:02)
[2023-04-14] MEDS ORDERED: CEPH500C16 PO (10:04)
[2023-04-14] MEDS: INSULIN LISPRO SLIDING SCALE 100 UNITS/ML VIAL SUBQ PRN ×3 (11:11→21:05)
[2023-04-14] MEDS: traZODone 50 MG TAB PO SCH (20:59)
[2023-04-14] MEDS: INSULIN LANTUS 100 UNITS/ML 10 ML VIAL SUBQ SCH (21:04)
[2023-04-14] MEDS: MORPHINE SULFATE 2 MG/ML SYR IVP PRN (21:09)
[2023-04-15 04:00] VITALS: BP 112/78; PULSE 77; RESP 18; TEMP 97.7; O2SAT 94
[2023-04-15] MEDS: BLOOD GLUCOSE MONITORING 1 DEV DEV FS SCH ×2 (06:36→11:30)
[2023-04-15] MEDS: INSULIN LISPRO SLIDING SCALE 100 UNITS/ML VIAL SUBQ PRN ×2 (06:37→13:47)
[2023-04-15 08:00] VITALS: PULSE 90; RESP 19; TEMP 98; O2SAT 97
[2023-04-15] MEDS: TAMSULOSIN 0.4 MG CAP PO SCH (09:23)
[2023-04-15] MEDS: DULoxetine 30 MG CAPDR PO SCH (09:23)
[2023-04-15] MEDS: PHENAZOPYRIDINE 100 MG TAB PO SCH ×2 (09:24→13:43)
[2023-04-15] MEDS: PANTOPRAZOLE 40 MG TABEC PO SCH (09:24)
[2023-04-15] MEDS: amLODIPine 5 MG TAB PO SCH (09:24)
== END 2023-04-15 16:25 | DRG 466 ==
LOC: MED 20:15 → MTU 04-12 04:53
PROVIDERS: ADMIT Student in an Organized Health Care Education/Training Program; ATTEND Student in an Organized Health Care Education/Training Program
DX: T83.518A Infection and inflammatory reaction due to other urinary catheter, initial encounter (principal); E44.0 Moderate protein-calorie malnutrition; F32.A Depression, unspecified; T83.018A Breakdown (mechanical) of other urinary catheter, initial encounter; Y83.8 Other surgical procedures as the cause of abnormal reaction of the patient, or of later complication, without mention of misadventure at the time of the procedure; N39.0 Urinary tract infection, site not specified; K40.90 Unilateral inguinal hernia, without obstruction or gangrene, not specified as recurrent; R31.9 Hematuria, unspecified; M10.9 Gout, unspecified; N20.0 Calculus of kidney; K57.30 Diverticulosis of large intestine without perforation or abscess without bleeding; Z88.8 Allergy status to other drugs, medicaments and biological substances; Z79.899 Other long term (current) drug therapy; Y92.89 Other specified places as the place of occurrence of the external cause; Z68.29 Body mass index [BMI] 29.0-29.9, adult
CPT/HCPCS: 36415; 80048; 80053; 81001; 82948; 83605; 85025; 87040; 87081; 87086; 96365; 96375; 97112; 97116; 97530; 99291; J0696; J1815; J2270; J3010; J7060

== ENCOUNTER 2023-04-20 08:32 | Emergency (ER) | payer MEDICAID ==
[~2023-04-20] VITALS: Ht 167.6 cm; Wt 102.3 kg
[~2023-04-20 08:32] MED LIST changes: +CEPH500C16 PO; +DULO30EC PO; +HUMSLIDE SUBQ; +PYR100 PO
[2023-04-20 08:49] VITALS: BP 153/87; PULSE 111; RESP 19; TEMP 98.1; O2SAT 96
[2023-04-20 10:24] VITALS: BP 138/72; PULSE 111; RESP 19; TEMP 98.1; O2SAT 96
== END 2023-04-20 10:24 | disposition home or self-care (01) ==
LOC: MED 08:32
DX: N39.0 Urinary tract infection, site not specified (principal); R33.9 Retention of urine, unspecified; I11.9 Hypertensive heart disease without heart failure; E11.9 Type 2 diabetes mellitus without complications; F03.90 Unspecified dementia, unspecified severity, without behavioral disturbance, psychotic disturbance, mood disturbance, and anxiety; Z46.6 Encounter for fitting and adjustment of urinary device; Z79.899 Other long term (current) drug therapy; Z79.4 Long term (current) use of insulin; Z88.8 Allergy status to other drugs, medicaments and biological substances
CPT/HCPCS: 99281

== ENCOUNTER 2023-05-17 18:40 | Emergency (ER) | payer MEDICAID ==
[~2023-05-17] VITALS: Ht 167.6 cm; Wt 102.1 kg
[~2023-05-17 18:40] MED LIST changes: -DULO20EC PO; -INSU100S5 IJ; -KETO30SO21 IJ; -PRAZ1CAP5 PO
[2023-05-17 19:30] VITALS: BP 141/83; PULSE 102; RESP 20; TEMP 96.6; O2SAT 97
== END 2023-05-17 21:02 | disposition left against medical advice (07) ==
LOC: MED 18:40
DX: N48.89 Other specified disorders of penis (principal); Z53.21 Procedure and treatment not carried out due to patient leaving prior to being seen by health care provider
CPT/HCPCS: 99281

== ENCOUNTER 2023-05-25 00:59 | Emergency (ER) | payer MEDICAID ==
[~2023-05-25] VITALS: Ht 170.2 cm; Wt 81.6 kg
[2023-05-25 01:02] VITALS: BP 150/82; PULSE 115; RESP 18; TEMP 98.4; O2SAT 96
[2023-05-25 01:08] VITALS: O2SAT 97
[2023-05-25] MEDS ORDERED: oxyCODONE/APAP 5/325 MG 1 TAB TAB PO ONE (01:50)
[2023-05-25 01:57] VITALS: TEMP 98.4
[2023-05-25 03:12] LABS: APPEARANCE,URINE CLEAR (CLEAR); BILIRUBIN,URINE NEGATIVE (NEGATIVE); BLOOD, URINE 3+ (NEGATIVE); COLOR,URINE YELLOW (YELLOW); LEUKOCYTE ESTERASE ,URINE 1+ (NEGATIVE); NITRITE, URINE NEGATIVE (NEGATIVE); PROTEIN,URINE TRACE (NEGATIVE); UGLUCOSE 3+ (NEGATIVE); UROBILINOGEN,URINE 0.2 EU/dL (0.2 - 1)
[2023-05-25 03:14] LABS: BACTERIA,URINE >30 (MANY) /HPF (None Seen); MUCUS,URINE 1+ /LPF (None Seen); SQUAMOUS EPITHELIAL CELL,UR 0-3 (FEW) /LPF (0-3 (FEW)); WBC,URINE TOO MANY TO COUNT /HPF (0-5)
[2023-05-25] MEDS ORDERED: CEFP200T20 PO (03:18)
[2023-05-25 03:50] VITALS: BP 150/85; PULSE 92; RESP 14; O2SAT 97
== END 2023-05-25 03:50 | disposition home or self-care (01) ==
LOC: MED 00:59
DX: T83.098A Other mechanical complication of other urinary catheter, initial encounter (principal); F03.90 Unspecified dementia, unspecified severity, without behavioral disturbance, psychotic disturbance, mood disturbance, and anxiety; E11.9 Type 2 diabetes mellitus without complications; I11.9 Hypertensive heart disease without heart failure; Z79.4 Long term (current) use of insulin; Z79.899 Other long term (current) drug therapy; Y92.89 Other specified places as the place of occurrence of the external cause
CPT/HCPCS: 51702; 81001; 87086; 99284

== ENCOUNTER 2023-06-04 23:42 | Emergency (ER) | payer MEDICAID ==
[~2023-06-04] VITALS: Ht 172.7 cm; Wt 97.5 kg
[~2023-06-04 23:42] MED LIST changes: +CEFP200T20 PO
[2023-06-04 23:45] VITALS: BP 158/90; PULSE 114; RESP 20; TEMP 98; O2SAT 99
[2023-06-05 00:33] LABS: APPEARANCE,URINE CLOUDY (CLEAR); BILIRUBIN,URINE NEGATIVE (NEGATIVE); BLOOD, URINE 3+ (NEGATIVE); COLOR,URINE YELLOW (YELLOW); LEUKOCYTE ESTERASE ,URINE 1+ (NEGATIVE); NITRITE, URINE POSITIVE (NEGATIVE); PROTEIN,URINE NEGATIVE (NEGATIVE); UGLUCOSE 3+ (NEGATIVE); UROBILINOGEN,URINE 0.2 EU/dL (0.2 - 1)
[2023-06-05 00:49] LABS: BACTERIA,URINE 3+ /HPF (None Seen); RBC,URINE 50-80 /HPF (0-5); SQUAMOUS EPITHELIAL CELL,UR 0-3 (FEW) /LPF (0-3 (FEW)); WBC,URINE TOO MANY TO COUNT /HPF (0-5)
[2023-06-05 01:04] VITALS: BP 130/77; PULSE 101; RESP 22; O2SAT 95
[2023-06-05] MEDS ORDERED: CEPH-588 PO (01:07)
[2023-06-05] MEDS ORDERED: cefTRIAXone 1,000 MG in LIDOCAINE MPF 1% 2.1 ML IM ONE (01:10)
[2023-06-05] MEDS ORDERED: cefTRIAXone 1,000 MG VIAL ONE ×2 (01:11→01:24)
[2023-06-05] MEDS ORDERED: LIDOCAINE MPF 1% 5 ML ONE ×2 (01:11→01:25)
== END 2023-06-05 01:45 | disposition home or self-care (01) ==
LOC: MED 23:42
DX: R33.9 Retention of urine, unspecified (principal); T83.098A Other mechanical complication of other urinary catheter, initial encounter; I11.0 Hypertensive heart disease with heart failure; E11.9 Type 2 diabetes mellitus without complications; F03.90 Unspecified dementia, unspecified severity, without behavioral disturbance, psychotic disturbance, mood disturbance, and anxiety; Z88.8 Allergy status to other drugs, medicaments and biological substances; Z79.899 Other long term (current) drug therapy; Y92.89 Other specified places as the place of occurrence of the external cause
CPT/HCPCS: 51702; 81001; 87086; 96372; 99284; J0696; J2001

== ENCOUNTER 2023-06-16 01:45 | Inpatient (IN) | payer MEDICAID ==
[~2023-06-16] VITALS: Ht 167.6 cm; Wt 103.4 kg
[~2023-06-16 01:45] MED LIST changes: +CEPH-588 PO
[2023-06-16 01:55] VITALS: BP 128/77; PULSE 100; RESP 18; TEMP 98.1; O2SAT 96
[2023-06-16] MEDS ORDERED: NACL 0.9% 1,000 ML IV ONE (04:15)
[2023-06-16] MEDS ORDERED: CIPROFLOXACIN 400 MG/200ML-D5W 200 ML IV ONE (04:15)
[2023-06-16 05:35] LABS: BASOPHILS # (AUTO) 0.1 K/uL (0.00-0.22); BASOPHILS % (AUTO) 0.8 % (0.0-2.0); EOSINOPHILS # (AUTO) 0.5 K/uL (0-0.4); EOSINOPHILS % (AUTO) 4.9 % (0.0-4.0); HEMOGLOBIN 13.8 g/dL (12.0-18.0); LYMPHOCYTES # (AUTO) 2.7 K/uL (2.0-11.5); MEAN CORPUSCULAR HEMOGLOBIN 28 pg (27-31); MEAN CORPUSCULAR HGB CONC 34 g/dL (33-37); MONOCYTES # (AUTO) 0.9 K/uL (0.8-1.0); NEUTROPHILS # (AUTO) 6.2 K/uL (1.8-7.7); NEUTROPHILS % (AUTO) 59.3 % (42.2-75.2); PLATELET COUNT (AUTO) 238 K/uL (140-450); RED CELL DISTRIBUTION WIDTH 13.7 % (11.6-13.7); WHITE BLOOD COUNT (AUTO) 10.5 K/uL (4.8-10.8)
[2023-06-16 05:54] LABS: CALCIUM 8.8 mg/dL (8.5-10.1); CARBON DIOXIDE 27.2 mmol/L (21-32); CREATININE 1.1 mg/dL (0.6-1.3); POTASSIUM 4.2 mmol/L (3.5-5.1)
[2023-06-16 06:03] LABS: LACTIC ACID 1.8 mmol/L (0.4-2.0)
[2023-06-16] MEDS ORDERED: MORPHINE SULFATE 4 MG/ML SYR IVP PRN (06:10)
[2023-06-16] MEDS ORDERED: ACETAMINOPHEN 325 MG TAB PO PRN (06:10)
[2023-06-16] MEDS ORDERED: DEXTROSE 50% 50 ML SYR IVP PRN (06:20)
[2023-06-16 06:56] LABS: BILIRUBIN,URINE NEGATIVE (NEGATIVE); BLOOD, URINE 3+ (NEGATIVE); COLOR,URINE YELLOW (YELLOW); LEUKOCYTE ESTERASE ,URINE 1+ (NEGATIVE); NITRITE, URINE POSITIVE (NEGATIVE); PROTEIN,URINE TRACE (NEGATIVE); UGLUCOSE 3+ (NEGATIVE); UROBILINOGEN,URINE 0.2 EU/dL (0.2 - 1)
[2023-06-16 06:57] LABS: APPEARANCE,URINE CLOUDY (CLEAR)
[2023-06-16 07:10] LABS: YEAST,URINE Few /HPF (None Seen)
[2023-06-16 07:11] LABS: RBC,URINE 50-80 /HPF (0-5)
[2023-06-16 07:12] LABS: BACTERIA,URINE 1+ /HPF (None Seen); SQUAMOUS EPITHELIAL CELL,UR 0-3 (FEW) /LPF (0-3 (FEW)); WBC,URINE 80-100 /HPF (0-5)
[2023-06-16] MEDS: INSULIN LISPRO SLIDING SCALE 100 UNITS/ML VIAL SUBQ PRN ×4 (07:23→21:58)
[2023-06-16] MEDS: BLOOD GLUCOSE MONITORING 1 DEV DEV FS SCH ×4 (07:38→21:48)
[2023-06-16] MEDS ORDERED: CIPROFLOXACIN 400 MG/200ML-D5W 200 ML IV SCH ×2 (09:00)
[2023-06-16] MEDS: DULoxetine 30 MG CAPDR PO SCH (09:21)
[2023-06-16] MEDS: LEVOFLOXACIN 750 MG/D5W PREMIX 150 ML IV SCH (16:45)
[2023-06-16] MEDS ORDERED: NON-FORMULARY ITEM (Trazodone HCl 1 TAB) PO SCH (17:00)
[2023-06-16 20:15] VITALS: BP 150/67; PULSE 78; RESP 18; TEMP 98; O2SAT 96
[2023-06-16] MEDS ORDERED: INSULIN LANTUS 100 UNITS/ML 10 ML VIAL SUBQ SCH (21:00)
[2023-06-16] MEDS: traZODone 50 MG TAB PO SCH (21:50)
[2023-06-17 04:00] VITALS: BP 123/65; PULSE 78; RESP 18; TEMP 98; O2SAT 96
[2023-06-17] MEDS: BLOOD GLUCOSE MONITORING 1 DEV DEV FS SCH ×4 (06:55→20:28)
[2023-06-17] MEDS: INSULIN LISPRO SLIDING SCALE 100 UNITS/ML VIAL SUBQ PRN ×4 (06:58→20:34)
[2023-06-17 07:05] LABS: BASOPHILS # (AUTO) 0.1 K/uL (0.00-0.22); BASOPHILS % (AUTO) 0.6 % (0.0-2.0); EOSINOPHILS # (AUTO) 0.6 K/uL (0-0.4); EOSINOPHILS % (AUTO) 6.6 % (0.0-4.0); HEMATOCRIT 40.6 % (36-52); HEMOGLOBIN 13.8 g/dL (12.0-18.0); LYMPHOCYTES % (AUTO) 35.1 % (20.5-51.1); MEAN CORPUSCULAR HEMOGLOBIN 28 pg (27-31); MEAN CORPUSCULAR HGB CONC 34 g/dL (33-37); MEAN CORPUSCULAR VOLUME 81.4 fL (80-94); MONOCYTES # (AUTO) 0.7 K/uL (0.8-1.0); MONOCYTES % (AUTO) 8.4 % (1.7-9.3); NEUTROPHILS # (AUTO) 4.2 K/uL (1.8-7.7); NEUTROPHILS % (AUTO) 49.3 % (42.2-75.2); PLATELET COUNT (AUTO) 215 K/uL (140-450); RED BLOOD CELL COUNT(AUTO) 4.99 MIL/uL (4.20-6.10); RED CELL DISTRIBUTION WIDTH 14.1 % (11.6-13.7); WHITE BLOOD COUNT (AUTO) 8.5 K/uL (4.8-10.8)
[2023-06-17 07:22] LABS: ANION GAP 11.1 (8-16); CALCIUM 8.5 mg/dL (8.5-10.1); CARBON DIOXIDE 28.1 mmol/L (21-32); POTASSIUM 4.2 mmol/L (3.5-5.1)
[2023-06-17 08:00] VITALS: BP 128/78; PULSE 88; RESP 17; TEMP 97.8; O2SAT 96
[2023-06-17] MEDS: DULoxetine 30 MG CAPDR PO SCH (09:19)
[2023-06-17] MEDS: HYDROcodone/APAP 5/325 MG 1 TAB TAB PO PRN ×3 (09:20→18:29)
[2023-06-17 16:00] VITALS: BP 141/80; PULSE 90; RESP 18; TEMP 98.1; O2SAT 98
[2023-06-17] MEDS: LEVOFLOXACIN 750 MG/D5W PREMIX 150 ML IV SCH (16:45)
[2023-06-17 20:00] VITALS: PULSE 85; RESP 20; TEMP 98.4; O2SAT 95
[2023-06-17] MEDS: traZODone 50 MG TAB PO SCH (20:25)
[2023-06-17] MEDS ORDERED: INSULIN LANTUS 100 UNITS/ML 10 ML VIAL SUBQ SCH (21:00)
[2023-06-18] VITALS: BP 110/60; PULSE 85; RESP 20; TEMP 98.4; O2SAT 95
[2023-06-18 06:12] LABS: BASOPHILS # (AUTO) 0.1 K/uL (0.00-0.22); BASOPHILS % (AUTO) 0.6 % (0.0-2.0); EOSINOPHILS # (AUTO) 0.5 K/uL (0-0.4); EOSINOPHILS % (AUTO) 5.5 % (0.0-4.0); HEMATOCRIT 42.5 % (36-52); HEMOGLOBIN 14.3 g/dL (12.0-18.0); LYMPHOCYTES % (AUTO) 30.4 % (20.5-51.1); MEAN CORPUSCULAR HEMOGLOBIN 28 pg (27-31); MEAN CORPUSCULAR HGB CONC 34 g/dL (33-37); MEAN CORPUSCULAR VOLUME 82.1 fL (80-94); MONOCYTES # (AUTO) 0.9 K/uL (0.8-1.0); MONOCYTES % (AUTO) 8.7 % (1.7-9.3); NEUTROPHILS # (AUTO) 5.3 K/uL (1.8-7.7); NEUTROPHILS % (AUTO) 54.8 % (42.2-75.2); PLATELET COUNT (AUTO) 243 K/uL (140-450); RED BLOOD CELL COUNT(AUTO) 5.18 MIL/uL (4.20-6.10); RED CELL DISTRIBUTION WIDTH 13.8 % (11.6-13.7); WHITE BLOOD COUNT (AUTO) 9.8 K/uL (4.8-10.8)
[2023-06-18] MEDS: BLOOD GLUCOSE MONITORING 1 DEV DEV FS SCH ×2 (06:30→11:34)
[2023-06-18] MEDS: INSULIN LISPRO SLIDING SCALE 100 UNITS/ML VIAL SUBQ PRN ×2 (06:31→11:37)
[2023-06-18 06:37] LABS: ANION GAP 11.3 (8-16); CALCIUM 8.7 mg/dL (8.5-10.1); CARBON DIOXIDE 28.8 mmol/L (21-32); CREATININE 1.1 mg/dL (0.6-1.3); POTASSIUM 4.1 mmol/L (3.5-5.1)
[2023-06-18 08:46] VITALS: BP 120/56; PULSE 78; RESP 20; TEMP 96.5; O2SAT 95
[2023-06-18] MEDS: DULoxetine 30 MG CAPDR PO SCH (10:21)
[2023-06-18] MEDS ORDERED: LEVO750T75 PO (11:38)
[2023-06-18] MEDS ORDERED: INSU100S22 SUBQ (11:38)
[2023-06-18] MEDS ORDERED: INSULIN LANTUS 100 UNITS/ML 10 ML VIAL SUBQ SCH ×2 (21:00)
== END 2023-06-18 14:00 | DRG 466 ==
LOC: MED 01:45 → MMU 06:14 → MTU 18:49
PROVIDERS: ADMIT Family Medicine; ATTEND Family Medicine
DX: T83.511A Infection and inflammatory reaction due to indwelling urethral catheter, initial encounter (principal); E11.65 Type 2 diabetes mellitus with hyperglycemia; T83.018A Breakdown (mechanical) of other urinary catheter, initial encounter; N39.0 Urinary tract infection, site not specified; R31.9 Hematuria, unspecified; Y83.8 Other surgical procedures as the cause of abnormal reaction of the patient, or of later complication, without mention of misadventure at the time of the procedure; M10.9 Gout, unspecified; F32.9 Major depressive disorder, single episode, unspecified; I10 Essential (primary) hypertension; Z88.8 Allergy status to other drugs, medicaments and biological substances; Z79.899 Other long term (current) drug therapy; Y92.89 Other specified places as the place of occurrence of the external cause
CPT/HCPCS: 36415; 76770; 80048; 81001; 82948; 83605; 85025; 87040; 87081; 87086; 96360; 99285; J0744; J1815; J1956; Q0092

== ENCOUNTER 2023-07-01 18:20 | Emergency (ER) | payer MEDICAID ==
[~2023-07-01] VITALS: Ht 167.6 cm; Wt 90.7 kg
[~2023-07-01 18:20] MED LIST changes: -CEFP200T20 PO; -CEPH-588 PO; -CEPH500C16 PO; +LEVO750T75 PO
[2023-07-01 18:21] VITALS: BP 147/88; PULSE 102; RESP 16; TEMP 98.6; O2SAT 95
[2023-07-01 19:01] VITALS: BP 135/72; PULSE 96; RESP 16; O2SAT 94
== END 2023-07-01 21:09 | disposition home or self-care (01) ==
LOC: MED 18:20
DX: Z00.8 Encounter for other general examination (principal); T83.098A Other mechanical complication of other urinary catheter, initial encounter; Y92.89 Other specified places as the place of occurrence of the external cause
CPT/HCPCS: 51702; 99284

== ENCOUNTER 2023-07-14 00:01 | Emergency (ER) | payer MEDICAID, OTHER ==
[~2023-07-14] VITALS: Ht 167.6 cm; Wt 81.6 kg
[2023-07-14 00:01] VITALS: BP 140/80; PULSE 101; RESP 18; TEMP 98; O2SAT 98
[2023-07-14 00:15] VITALS: BP 140/80; PULSE 101; RESP 18; TEMP 98; O2SAT 98
[2023-07-14] MEDS ORDERED: cefTRIAXone 1,000 MG VIAL ONE (00:30)
[2023-07-14] MEDS ORDERED: LIDOCAINE MPF 1% 5 ML ONE (00:30)
[2023-07-14] MEDS ORDERED: CIPR500T4 PO (00:40)
[2023-07-14] MEDS ORDERED: NAPR-54 PO (00:40)
[2023-07-14] MEDS: cefTRIAXone 1,000 MG in LIDOCAINE MPF 1% 2.1 ML IM ONE (00:42)
[2023-07-14] MEDS: KETOROLAC 60 MG/2 ML VIAL IM ONE (00:44)
[2023-07-14 01:00] LABS: APPEARANCE,URINE SL CLOUDY (CLEAR); BILIRUBIN,URINE NEGATIVE (NEGATIVE); BLOOD, URINE 1+ (NEGATIVE); COLOR,URINE YELLOW (YELLOW); LEUKOCYTE ESTERASE ,URINE TRACE (NEGATIVE); NITRITE, URINE NEGATIVE (NEGATIVE); PROTEIN,URINE NEGATIVE (NEGATIVE); UGLUCOSE 3+ (NEGATIVE); UROBILINOGEN,URINE 0.2 EU/dL (0.2 - 1)
[2023-07-14 01:03] LABS: WBC,URINE TOO MANY TO COUNT /HPF (0-5)
[2023-07-14 01:04] LABS: BACTERIA,URINE 10-30 (MOD) /HPF (None Seen); MUCUS,URINE 1+ /LPF (None Seen); SQUAMOUS EPITHELIAL CELL,UR 0-3 (FEW) /LPF (0-3 (FEW))
== END 2023-07-14 02:03 | disposition home or self-care (01) ==
LOC: MED 00:01
DX: N39.0 Urinary tract infection, site not specified (principal); T83.098A Other mechanical complication of other urinary catheter, initial encounter; I11.0 Hypertensive heart disease with heart failure; E11.9 Type 2 diabetes mellitus without complications; F03.90 Unspecified dementia, unspecified severity, without behavioral disturbance, psychotic disturbance, mood disturbance, and anxiety; Z79.899 Other long term (current) drug therapy
CPT/HCPCS: 51702; 81001; 87086; 96372; 99284; J0696; J1885; J2001

== ENCOUNTER 2023-10-11 00:15 | Emergency (ER) | payer OTHER ==
[~2023-10-11] VITALS: Ht 172.7 cm; Wt 99.8 kg
[~2023-10-11 00:15] MED LIST changes: +CIPR500T4 PO; +NAPR-337 PO
[2023-10-11 00:18] VITALS: BP 161/86; PULSE 92; RESP 18; TEMP 98.2; O2SAT 100
[2023-10-11 00:40] VITALS: O2SAT 98
[2023-10-11 00:46] VITALS: BP 161/86; PULSE 92; RESP 18; TEMP 98.2
[2023-10-11] MEDS ORDERED: LIDOCAINE MPF 1% 5 ML ONE (01:30)
[2023-10-11] MEDS ORDERED: cefTRIAXone 1,000 MG VIAL ONE (01:30)
[2023-10-11] MEDS: KETOROLAC 60 MG/2 ML VIAL IM ONE (01:40)
[2023-10-11] MEDS: cefTRIAXone 1,000 MG in LIDOCAINE MPF 1% 2.1 ML IM ONE (01:40)
[2023-10-11] MEDS ORDERED: FLONAS NS (03:04)
[2023-10-11] MEDS ORDERED: METH4TAB1 PO (03:04)
[2023-10-11 03:25] VITALS: O2SAT 100
== END 2023-10-11 05:50 | disposition home or self-care (01) ==
LOC: MED 00:15
DX: H68.001 Unspecified Eustachian salpingitis, right ear (principal); N39.0 Urinary tract infection, site not specified; I11.0 Hypertensive heart disease with heart failure; I50.9 Heart failure, unspecified; E11.9 Type 2 diabetes mellitus without complications; Z79.1 Long term (current) use of non-steroidal anti-inflammatories (NSAID); Z79.4 Long term (current) use of insulin; Z79.2 Long term (current) use of antibiotics; Z79.899 Other long term (current) drug therapy; Z88.8 Allergy status to other drugs, medicaments and biological substances
CPT/HCPCS: 70450; 96372; 99285; J0696; J1885; J2001

== ENCOUNTER 2023-10-11 16:11 | Emergency (ER) | payer MEDICAID, OTHER ==
[~2023-10-11] VITALS: Ht 167.6 cm; Wt 97.5 kg
[~2023-10-11 16:11] MED LIST changes: +FLONAS NS; +METH4TAB1 PO
[2023-10-11] MEDS: KETOROLAC 30 MG/ML VIAL IVP ONE (16:57)
[2023-10-11] MEDS: diphenhydrAMINE 50 MG/ML VIAL IVP ONE (17:00)
[2023-10-11] MEDS: methylPREDNISolone SS 125 MG/2 ML VIAL IVP ONE (17:05)
[2023-10-11 17:06] VITALS: BP 143/95; PULSE 83; RESP 20; TEMP 98.3; O2SAT 97
[2023-10-11 18:39] VITALS: BP 155/82; PULSE 72; RESP 16; TEMP 97.9; O2SAT 97
== END 2023-10-11 20:51 | disposition home or self-care (01) ==
LOC: MED 16:11
DX: K14.0 Glossitis (principal); I11.0 Hypertensive heart disease with heart failure; E11.9 Type 2 diabetes mellitus without complications; F03.90 Unspecified dementia, unspecified severity, without behavioral disturbance, psychotic disturbance, mood disturbance, and anxiety; Z79.899 Other long term (current) drug therapy; Z88.8 Allergy status to other drugs, medicaments and biological substances; Z79.4 Long term (current) use of insulin
CPT/HCPCS: 96374; 96375; 99284; J1200; J1885; J2930

== ENCOUNTER 2023-12-03 21:29 | Emergency (ER) | payer MEDICAID, OTHER ==
[~2023-12-03] VITALS: Ht 177.8 cm; Wt 111.1 kg
[2023-12-03 21:43] VITALS: BP 152/100; PULSE 95; RESP 14; TEMP 98.3; O2SAT 99
[2023-12-03] MEDS ORDERED: KETOROLAC 30 MG/ML VIAL ONE (22:52)
[2023-12-03] MEDS: KETOROLAC 30 MG/ML VIAL IM ONE (22:56)
[2023-12-03] MEDS ORDERED: NAPR-337 PO (23:09)
[2023-12-03] MEDS ORDERED: LID5T TP (23:09)
[2023-12-03 23:22] VITALS: BP 152/100; PULSE 95; RESP 14; TEMP 98.3; O2SAT 99
== END 2023-12-03 23:22 | disposition home or self-care (01) ==
LOC: MED 21:29
DX: D17.1 Benign lipomatous neoplasm of skin and subcutaneous tissue of trunk (principal); I11.0 Hypertensive heart disease with heart failure; I50.9 Heart failure, unspecified; J44.9 Chronic obstructive pulmonary disease, unspecified; E11.9 Type 2 diabetes mellitus without complications; F03.90 Unspecified dementia, unspecified severity, without behavioral disturbance, psychotic disturbance, mood disturbance, and anxiety; Z79.899 Other long term (current) drug therapy; Z79.4 Long term (current) use of insulin; Z88.8 Allergy status to other drugs, medicaments and biological substances
CPT/HCPCS: 96372; 99284; J1885

== ENCOUNTER 2024-02-07 12:46 | Emergency (ER) | payer MEDICAID, OTHER ==
[~2024-02-07] VITALS: Ht 167.6 cm; Wt 104.3 kg
[~2024-02-07 12:46] MED LIST changes: +LID5T TP
[2024-02-07 12:51] VITALS: BP 121/76; PULSE 104; RESP 18; TEMP 98.6; O2SAT 96
--- NOTE | 2024-02-07 12:51 | NUR ---
PT BIBA TO BED 8
--- NOTE | 2024-02-07 12:52 | NUR ---
MD SERRANO AT BEDSIDE FOR EVALUATION
--- NOTE | 2024-02-07 13:04 | NUR ---
EKG performed at BS.Physician given copy of EKG for review.
--- NOTE | 2024-02-07 13:06 | NUR ---
63YO MALE PT NANNETTE GRIFFIN C/O L UPPER BACK PAIN X1DAY. BUMP NOTED AT SITE OF PAIN. PAIN AT MOST ON MOVEMENT W/ RADIATION TO NECK. PT STATES HX LIPOMA, DNIES PREVIOUS PAIN. DENIES N/V/D, FEVR, CHILLS OR DISCHARGE. PT GIVEN FENTANYL IH ON ROUTE BY EMS W/ MILD RELIEF. PT AAOX4, HOB POSITIONED PER COMFORT. ON BOROUGH COORDINATOR. BED AT LOWEST POSITION, BED RAILS UPX2. CALL LIGHT WITHIN REACH. HX: DM, HTN ALLERGIES: PROZAC
--- NOTE | 2024-02-07 13:21 | NUR ---
pt w/ new pain onset. MADE AWARE
[2024-02-07] MEDS: MORPHINE SULFATE 4 MG/ML SYR IM ONE (13:29)
[2024-02-07] MEDS: LIDOCAINE 5% 1 EA PATCH TP ONE (13:33)
[2024-02-07] MEDS: KETOROLAC 30 MG/ML VIAL IM ONE (13:33)
[2024-02-07] MEDS ORDERED: LID5T TP (14:05)
[2024-02-07] MEDS ORDERED: ACET500T99 PO (14:05)
--- NOTE | 2024-02-07 14:25 | NUR ---
attempted to call report at pt facility. no answer x2
--- NOTE | 2024-02-07 14:50 | NUR ---
REPORT GIVEN TO [facility]. MADE AWARE OF PT PENDING D/C.
[2024-02-07 15:00] VITALS: BP 125/77; PULSE 88; RESP 16; TEMP 98.6; O2SAT 98
--- NOTE | 2024-02-07 15:00 | NUR ---
Patient discharged with v/s stable. Written and verbal after care instructions FOR LIPOMA given and explained. Patient alert, oriented and verbalized understanding of instructions. Ambulatory with to car. All questions addressed prior to discharge. ID band removed. Patient advised to follow up with PMD. Rx of TYLENOL XTRA AND LIDOCAINE given.Opportunity to ask questions provided and answered. UBER PROVIDED - NATALIA GRIFFIN NOTIFIED OF ETA.
--- NOTE | 2024-02-07 15:13 | NUR ---
Chart checked and completed. The patient's care was reviewed and supervised by CODIE BRASWELL RN.
== END 2024-02-07 15:00 | disposition home or self-care (01) ==
LOC: MED 12:46
DX: M54.6 Pain in thoracic spine (principal); R22.2 Localized swelling, mass and lump, trunk; Z86.018 Personal history of other benign neoplasm; I11.0 Hypertensive heart disease with heart failure; I50.9 Heart failure, unspecified; J44.9 Chronic obstructive pulmonary disease, unspecified; E11.9 Type 2 diabetes mellitus without complications; F03.90 Unspecified dementia, unspecified severity, without behavioral disturbance, psychotic disturbance, mood disturbance, and anxiety; Z79.899 Other long term (current) drug therapy; Z79.4 Long term (current) use of insulin; Z88.8 Allergy status to other drugs, medicaments and biological substances
CPT/HCPCS: 93005; 96372; 99284; J1885; J2270

== ENCOUNTER 2024-04-05 04:59 | Emergency (ER) | payer OTHER ==
[~2024-04-05] VITALS: Ht 167.6 cm; Wt 104.3 kg
[~2024-04-05 04:59] MED LIST changes: +ACET500T99 PO
[2024-04-05 05:09] VITALS: BP 152/92; PULSE 114; RESP 18; TEMP 97.5; O2SAT 96
[2024-04-05] MEDS ORDERED: LIDO1ADH54 TP (05:21)
[2024-04-05] MEDS ORDERED: NAPR-337 PO (05:21)
[2024-04-05] MEDS: KETOROLAC 30 MG/ML VIAL IM ONE (05:49)
[2024-04-05 06:00] VITALS: BP 152/92; PULSE 114; RESP 18; TEMP 97.5; O2SAT 96
[2024-04-05] MEDS: LIDOCAINE 5% 1 EA PATCH TP ONE (06:00)
== END 2024-04-05 06:00 | disposition home or self-care (01) ==
LOC: MED 04:59
DX: D17.1 Benign lipomatous neoplasm of skin and subcutaneous tissue of trunk (principal); J44.9 Chronic obstructive pulmonary disease, unspecified; I11.0 Hypertensive heart disease with heart failure; I50.9 Heart failure, unspecified; F03.90 Unspecified dementia, unspecified severity, without behavioral disturbance, psychotic disturbance, mood disturbance, and anxiety; E11.9 Type 2 diabetes mellitus without complications; Z79.899 Other long term (current) drug therapy; Z79.4 Long term (current) use of insulin; Z88.8 Allergy status to other drugs, medicaments and biological substances
CPT/HCPCS: 96372; 99283; J1885